=== PATIENT | female | born 1955 | race Caucasian/White ===

== ENCOUNTER 2018-11-03 16:56 | Observation (INO) | payer SELFPAY ==
[2018-11-03 17:20] VITALS: BMI 37.5
[2018-11-03] MEDS ORDERED: GLUCAGON 1 MG/VIAL IM PRN (18:08)
[2018-11-03] MEDS ORDERED: D50W 25 GM/50 ML SYRINGE IV PRN (18:08)
[2018-11-03] MEDS ORDERED: VANCOMYCIN/NS 1 gm 1 GM/250 ML BAG IVPB SCH (18:15)
[2018-11-03] MEDS ORDERED: VANCOMYCIN 1.75 GM in NA CHLORIDE 0.9% 500 ML IVPB ONE (19:00)
[2018-11-03] MEDS ORDERED: Levofloxacin500mg IV 500 MG/100 ML BAG IV SCH (19:00)
[2018-11-03 19:19] LABS: Basophils % 0.9 % (0-1.3); Hematocrit 34.6 % (36.0-45.0); Lymphocytes % 29.2 % (15.3-44.8); MPV 8.5 fL (7.6-11.3); RBC Red Blood Cell Count 3.79 M/uL (3.86-4.86)
[2018-11-03 19:24] LABS: Protime INR 1.01
[2018-11-03 19:46] LABS: Albumin 3.3 g/dL (3.4-5.0); Bilirubin Total 0.3 mg/dL (0.2-1.0); Magnesium 1.9 mg/dL (1.8-2.4); Potassium 4.1 mmol/L (3.5-5.1); Protein, Total 7.1 g/dL (6.4-8.2)
[2018-11-03 19:57] LABS: Thyroid Stimulating Hormone 4.78 uIU/mL (0.360-3.740)
[2018-11-03] MEDS: INSULIN -REGULAR HUMAN 50 UNIT/0.5 ML ML SQ SCH (20:31)
[2018-11-03] MEDS ORDERED: DIPHENHYDRAMINE PO PRN (21:40)
[2018-11-03] MEDS ORDERED: HYOSCYAMINE SULFATE 0.125 MG PO PRN (21:40)
[2018-11-03] MEDS ORDERED: [UNRECOGNIZED DRUG - OTHER] PO PRN (21:40)
[2018-11-03] MEDS ORDERED: ACETAMINOPHEN PO PRN (21:40)
[2018-11-03] MEDS ORDERED: AZELASTINE NS PRN (21:40)
[2018-11-03] MEDS ORDERED: HOME MED 1 EA UNK (Levocetirizine Dihydrochloride [Xyzal] 5 MG) PO PRN (21:40)
[2018-11-03] MEDS ORDERED: LOPERAMIDE 2 MG PO PRN (21:40)
[2018-11-03] MEDS ORDERED: ONDANSETRON 4 MG/2 ML VIAL IV PRN (21:42)
[2018-11-03] MEDS ORDERED: ALPRAZOLAM 0.25 MG TABLET PO PRN (21:42)
[2018-11-03] MEDS ORDERED: MORPHINE 2 MG/ML SYR IV PRN (21:42)
[2018-11-03] MEDS ORDERED: NA CHLORIDE 0.9% 1,000 ML IV SCH (22:00)
[2018-11-04 00:43] VITALS: O2SAT 95
[2018-11-04 01:14] LABS: Urine Appearance CLOUDY; Urine Bilirubin NEGATIVE (NEG); Urine Blood NEGATIVE (NEG); Urine Color YELLOW; Urine Glucose NEGATIVE (NEG); Urine Protein NEGATIVE (NEG); Urine Specific Gravity 1.015 (1.005-1.030); Urine Urobilinogen 0.2 mg/dL (0.2-1.0)
[2018-11-04 01:32] LABS: Urine Microscopic Reflex ORDER UMIC
[2018-11-04 02:11] LABS: Calcium Oxalate Crystals- Ur FEW (NONE SEEN); Urine Bacteria <20 /HPF (<20); Urine Culture Reflex Order REFLEXED; Urine RBC <5 /HPF (NONE SEEN)
--- NOTE | 2018-11-04 02:43 | HP ---
Date of Admission: 11/03/2018 Chief Complaint: Infection in right leg. History Of Present Illness: This is a 63-year-old female patient who started to have small knot type of area on the right upper posterior thigh about a week to 2 weeks ago and over period of time, this got worse to the extent that it turned into large area of abscess. About 3 days ago, she went to [facility] and she was told to have large abscess with approximate size of a baseball and sma ll opening was made in this area for drainage purpose and she was discharged to go home with oral ant ibiotic Bactrim and Bactroban intranasal cream. She came into office today to see me and after I yair luated her, decision was made to admit her to the hospital with this significantly large abscess in t he right posterior thigh. Allergies: NAPROXEN. Medications: List reviewed. Review of Systems: Dermatology: As mentioned above. All other systems reviewed and negative. Past Medical History: Significant for hypertension, hyperlipidemia, type 2 diabetes mellitus, sleep apnea, ulcerative colitis, migraine, depression, hypothyroidism, osteopenia. Past Surgical History: Significant for removal of ovarian cyst, wisdom teeth extraction and hysterec ernestine. Family History: Brother with hyperlipidemia and hypertension. Father, coronary artery disease, diab etes, and lung cancer. Mother, diabetes, breast cancer, colon cancer. Social History: Negative for smoking and alcohol use. Physical Examination: Admission Vital Signs: Temperature 97.3, pulse 55, respiratory rate 16, blood pressure 131/63, oxyge n saturation 95%. Height 5 feet 3 inches, weight 212 pounds. General: Awake, alert, oriented, not in distress. HEENT: Head atraumatic, normocephalic. Conjunctivae nonerythematous. Sclerae white. Mouth, no thr ush or edema noted. Ears/Nose, no mass, lesion, discharge noted. Neck: Supple. No JVD, lymph nodes, bruit, thyromegaly noted. Lungs: Bilateral good equal air entry. Clear to auscultation. No rhonchi. No rales. Heart: Normal heart sounds, no murmur or gallop. Abdomen: Soft, bowel sounds normal. No guarding, rigidity, tenderness, mass, hepatosplenomegaly, dis tention, or bruit noted. Extremities: Right upper posterior thigh has large abscess with pink, warm, tender skin overlying th is indurated area is approximately 15 x 15 cm size. Center part has a small probably 3 to 5 mm openi ng. No bleeding. Skin: No rash, ulcer, cellulitis. Lymphatics: No lymph node enlargement in neck, supraclavicular, infraclavicular region. Neuro: No focal neurological deficit. Chest: Unremarkable. External Genitalia: Deferred. Rectal: Deferred. Laboratory Data: White count 10.1, hemoglobin 11.7, platelets 428. Chemistry shows sodium _, potassium , chloride , bicarb , BUN , creatinine _, glucose . Liver function tests unremarkable. Impression: 1.Right leg abscess. 2.Anemia, chronic, unspecified. 3.Type 2 diabetes mellitus. 4.Hypertension. 5.Hyperlipidemia. 6.Sleep apnea. 7.Ulcerative colitis. 8.Hypothyroidism. Plan: We will admit the patient to hospital for further evaluation and management of this problem. Patient is appropriate for inpatient and is expected to spend 2 midnights in hospital. We will go ah ead and start on IV antibiotics, vancomycin and Levaquin. Consult general surgeon on-call, Dr. Renu ledbetter and we will keep the patient n.p.o. after midnight for incision and drainage tomorrow. Wound cult ure was ordered. Home medications will be continued per order. Diabetes will be managed with slidin g scale insulin. Details of plan of treatment discussed with her. SCD was ordered for DVT prophylax is. I will see her tomorrow morning for followup. Concern about possibility of MRSA infection. BRAXTON/MODL Voice ID: [id number]
[2018-11-04] MEDS: INSULIN -REGULAR HUMAN 50 UNIT/0.5 ML ML SQ SCH ×2 (07:30→11:23)
[2018-11-04] MEDS ORDERED: LEVOTHYROXINE SODIUM 25 MCG PO SCH (09:00)
[2018-11-04] MEDS ORDERED: BENAZEPRIL HCL 20 MG PO SCH (09:00)
[2018-11-04] MEDS ORDERED: HOME MED 1 EA UNK (Metoprolol Tartrate [Lopressor*] 50 MG) PO SCH (09:00)
[2018-11-04] MEDS ORDERED: MESALAMINE PO SCH (09:00)
--- NOTE | 2018-11-04 10:57 | CON ---
Date of Consultation: 11/04/2018 Brief History Of Present Illness: Patient is a 63-year-old female, who presented with a 2- week history of a small knot on the right posterior thigh. She said it started as a boil and got pro gressively larger over the course of several days, as such, she went to [place] [facility] approxim ately 4 days ago where an incision and drainage was done in that facility at that time and it was pac ked at that time. She states it was approximately size of a baseball and she was discharged with ora l antibiotics, Bactrim and Bactroban. She came to see Dr. Smith in his clinic and continued to have d rainage of the abscess. Her dressings had not been changed; however, she had the original packing in place. Past Medical History: Significant for hypertension, hyperlipidemia, type 2 diabetes, sleep apnea, ul cerative colitis, migraine, depression, hypothyroidism, osteopenia. Past Surgical History: Significant for removal of ovarian cyst, wisdom teeth extraction, hysterectom y, and incision and drainage of abscess of posterior thigh as described above. Allergies: TO NAPROXEN. Family History: Her brother has hyperlipidemia, and father had coronary artery disease, diabetes, an d lung cancer. Mother had diabetes, breast cancer, and colon cancer. Social History: She denies smoking, alcohol, or recreational drug use. Home Medications: Include Tylenol, vitamin C, aspirin, Excedrin Extra Strength, Astelin, benazepril, calcium citrate, cranberry plus vitamin C softgel, vitamin B12, diphenoxylate, Trulicity, Amaryl, Le vsin, Xyzal, Unithroid, Imodium, magnesium, Apriso, Glucophage, Lopressor, Crestor, Boniva, Ultram, a nd Valerian. Review of Systems: A 10-point review of systems other than HPI, denies. Physical Examination: Vital Signs: At the time of examination her vital signs were a BMI of 37.6. Her heart rate was 55, blood pressure 113/56, pulse is 55, respiratory rate 18, temperature 97.5. General: She is awake, alert, and oriented. Psychiatric: She is appropriate and conversive. HEENT: She is normocephalic. Her sclerae are anicteric. Her mucous membranes are moist. Oropharyn x is clear. Neck: Supple. There was no obvious JVD. Chest: Normal expansion and excursion. Extremities: Focused examination of the lower extremity shows an area of cellulitis of approximately 10, cm around 3 small openings on the right posterior thigh. There is induration to the area, but t here are no obvious drainable collections. Packing was removed. She does have some fibrinous exudat e, but no drainable collections at this time. Laboratory Data: White blood cell count of 10.1, hemoglobin is 11.7, hematocrit of 34.6, platelet co unt is 428, neutrophils are normal at 57%, PT 11.9, INR 1.01. Sodium 139, potassium 4.1, chloride 10 6, carbon dioxide 26, BUN 10, creatinine of 1.4, glucose 135, calcium 8.9, total bilirubin 0.3, AST 1 3, ALT 22, alkaline phosphatase is 81. Her urine was examined and showed some squamous epithelial ce lls and white blood cells and 2+ leukocyte esterase. Assessment And Plan: This is a 63-year-old female who comes in with a recently drained abscess of th e right posterior thigh. 1.Recommend daily dressing changes with irrigation with saline and deep packing with iodoform packin g every day as well as wrapping and gentle elevation of the lower extremity. 2.I recommend continued course of Bactrim for approximately 7 days. 3.I will follow up with her in my clinic upon her discharge but continue antibiotics per Dr. Smith's recommendations. 4.I do not find a surgical drainable collection at this time. However, we will follow along until p atient is discharged. Thank you for this interesting consult. МАРИЯ/JENNIFER Voice ID: [id number] Report ID: [id number]
[2018-11-04 14:20] VITALS: BP 129/58; TEMP 97.2
[2018-11-04] MEDS ORDERED: HOME MED 1 EA UNK (Rosuvastatin Calcium [Crestor] 20 MG) PO SCH (21:00)
[2018-11-04] MEDS ORDERED: HOME MED 1 EA UNK (Magnesium Oxide [Magnesium] 250 MG) PO SCH (21:00)
[2018-11-05] MEDS ORDERED: VANCOMYCIN 1.75 GM in NA CHLORIDE 0.9% 500 ML IV SCH (07:00)
--- NOTE | 2018-11-05 18:19 | DS ---
Date of Discharge: 11/04/2018 Disposition: Discharged to go home. Physical Examination: HEENT: Unremarkable. Lungs: Clear to auscultation. Heart: Sounds normal. Abdomen: Soft. Bowel sounds normal. No guarding, rigidity, tenderness, or distention. Extremities: No leg edema. Right posterior upper thigh shows area of diminishment and no fluctuatio n. No discharge or bleeding. Surrounding redness of the skin is better today compared to yesterday. Final Diagnoses: 1.Abscess, right leg. 2.Type 2 diabetes mellitus. 3.Hypertension. 4.Hyperlipidemia. 5.Volume depletion. Hospital Course: A 63-year-old female patient admitted to the hospital with abscess of right posteri or thigh. Please see dictated H and P for more information. The patient was admitted to the [facility]. She was started on IV antibiotics, Levaquin and vancomycin, and Dr. Lewis was consulted from [facility]. Overnight, her condition improved. Dr. Lewis saw her this morning, and after he ex amined, he called me and informed me that he actually did try to probe this open wound that she has a nd he could not find any pus collection as it had drained so far by the time he examined. There was no evidence of pus collection and he does not recommend any surgical intervention at this time as the re is no drainable fluid. He has released patient to go home from his point of view. She is on oral antibiotic, Bactrim, so we will continue that, and she will see Dr. Lewis next week. I will see h er a week after that for followup. She was given IV fluid with a creatinine slightly elevated at 1.4 , so we will follow up on blood work on an outpatient basis. Discharge Medications And Instructions: Continue all prior home medications including antibiotic, Ba ctrim, and ointment, mupirocin. BRAXTON/MODL Voice ID: [id number] Report ID: [id number]
== END 2018-11-04 15:50 | disposition home or self-care (01) ==
LOC: 2ND 16:56 → INTOOBSV 16:56
PROVIDERS: ADMIT Internal Medicine; ATTEND Internal Medicine
DX: L02.415 Cutaneous abscess of right lower limb (principal); D64.9 Anemia, unspecified; E11.9 Type 2 diabetes mellitus without complications; I10 Essential (primary) hypertension; E78.5 Hyperlipidemia, unspecified; G47.30 Sleep apnea, unspecified; K51.90 Ulcerative colitis, unspecified, without complications; E03.9 Hypothyroidism, unspecified; E86.9 Volume depletion, unspecified
CPT/HCPCS: 36415; 80053; 81003; 81015; 82962; 83735; 84439; 84443; 85025; 85610; 87070; 87077; 87086; 87088; 87186; 87205; G0378; J2270; J7030